=== PATIENT | female | born 1955 | race African-American/Black ===

== ENCOUNTER 2019-01-03 22:41 | Emergency (ER) | payer MEDICAID ==
[~2019-01-03] VITALS: Ht 160 cm; Wt 86.2 kg
[~2019-01-03 22:41] MED LIST: ACET-8386 PO; ALPR1TAB2 PO; AMLO5TAB PO; BENA20TA PO; GABA300C PO; OMEP40EC1 PO; RANI-287 PO; [UNRECOGNIZED DRUG - OTHER] PO
[2019-01-03 23:06] VITALS: BP 100/69
--- NOTE | 2019-01-03 23:09 | NUR ---
PT WHEEL CHAIR ASSISTED TO BED 5 WITH VSS.
--- NOTE | 2019-01-03 23:21 | NUR ---
Dr. Honeycutt evaluating patient at bedside.
[2019-01-03] MEDS ORDERED: oxyCODONE/APAP 5/325 MG 1 TAB TAB PO ONE (23:30)
[2019-01-03] MEDS ORDERED: KETOROLAC 30 MG/ML VIAL IM ONE (23:30)
--- NOTE | 2019-01-03 23:30 | NUR ---
PT BIB SELF FOR L KNEE PAIN X1 DAY. PT REPORTS FALLING WHILE SHE WAS MOPING AND LANDING ON L KNEE. PT REPORTS SHARP THROBBING PAIN AT 10/10 THAT RADIATES DOWN L LEG. VISIBLE SWELLING AND BRUISING ON L KNEE. PEDAL PULSES PRESENT, CAP REFIL <3 SEC, PT DENIES ANY TINGLING OR NUMBNESS. PT HAS LOS OF ROM WITH L KNEE. ER MD TO SEE PT.
--- NOTE | 2019-01-04 | NUR ---
X RAY AT [facility] AT THIS TIME
--- NOTE | 2019-01-04 00:27 | NUR ---
Dr. Honeycutt re-evaluating patient at bedside.
[2019-01-04] MEDS ORDERED: MORPHINE SULFATE 4 MG/ML SYR IM ONE (00:30)
--- NOTE | 2019-01-04 01:39 | NUR ---
BOBBY EMT PUTTING ON KNEE IMOBILIZER AND TEACHING PT HOW TO USE CRUTCHES AT THIS TIME.
[2019-01-04 01:45] VITALS: BP 110/70
--- NOTE | 2019-01-04 01:46 | NUR ---
Patient discharged with v/s stable. Written and verbal after care instructions given and explained. Patient alert, oriented and verbalized understanding of instructions. Ambulatory with steady gait. All questions addressed prior to discharge. ID band removed. Patient advised to follow up with PMD. Rx of IBUPROFEN, PERCOCET given. Patient educated on indication of medication including possible reaction and side effects. Opportunity to ask questions provided and answered.
== END 2019-01-04 01:46 | disposition home or self-care (01) ==
LOC: MED 22:41
DX: M25.562 Pain in left knee (principal); I10 Essential (primary) hypertension; Z79.899 Other long term (current) drug therapy; Z88.1 Allergy status to other antibiotic agents; Z88.2 Allergy status to sulfonamides; W01.0XXA Fall on same level from slipping, tripping and stumbling without subsequent striking against object, initial encounter; Y93.89 Activity, other specified; Y92.89 Other specified places as the place of occurrence of the external cause; Y99.8 Other external cause status
CPT/HCPCS: 73502; 73562; 96372; 99283; J1885; J2270; Q0092

== ENCOUNTER 2019-01-04 22:21 | Emergency (ER) | payer MEDICAID ==
[~2019-01-04] VITALS: Ht 160 cm; Wt 86.2 kg
[2019-01-04 22:24] VITALS: BP 139/78
--- NOTE | 2019-01-04 22:24 | NUR ---
TO LOBBY AWAITING BED, VSS.
--- NOTE | 2019-01-04 23:20 | NUR ---
TO CT VIA WC WITH DIRECTOR OF FLIGHT OPERATIONS
[2019-01-04] MEDS ORDERED: oxyCODONE/APAP 5/325 MG 1 TAB TAB PO ONE (23:45)
--- NOTE | 2019-01-05 00:25 | NUR ---
PT BIB SELF BECAUSE SHE WAS CALLED BY DR OGDEN AT [facility] AND TOLD TO COME BACK IN FOR A CT SCAN. PT REPORTS 10/10 SHARP STABBING PAIN THAT INCREASING WITH MEVEMENT AND WALKING. SWELLING AND BRUISING VISIBLE ON L KNEE. ER MD TO SEE PT.
[2019-01-05 02:11] VITALS: BP 139/78
--- NOTE | 2019-01-05 02:11 | NUR ---
Patient discharged with v/s stable. Written and verbal after care instructions given and explained. Patient verbalized understanding. Ambulatory with WITH CRUTCHES. All questions addressed prior to discharge. Advised to follow up with PMD.
== END 2019-01-05 02:11 | disposition home or self-care (01) ==
LOC: MED 22:21
DX: M25.562 Pain in left knee (principal); I10 Essential (primary) hypertension; Z79.899 Other long term (current) drug therapy; Z88.1 Allergy status to other antibiotic agents; Z88.2 Allergy status to sulfonamides
CPT/HCPCS: 73700; 99284

== ENCOUNTER 2019-04-22 19:10 | Emergency (ER) | payer MEDICAID ==
[~2019-04-22] VITALS: Ht 160 cm; Wt 91.2 kg
[2019-04-22 19:18] VITALS: BP 146/88
--- NOTE | 2019-04-22 19:18 | NUR ---
PT TAKEN TO BED 7.
[2019-04-22] MEDS ORDERED: KETOROLAC 60 MG/2 ML VIAL IM ONE (19:50)
--- NOTE | 2019-04-22 19:51 | NUR ---
EMT PERFORMING EKG AT BEDSIDE.
--- NOTE | 2019-04-22 19:51 | NUR ---
64 YO F BIB SELF PRESENTS WITH ATYPICAL NON-RADIATING 9/10 UPPER CHEST PAIN. PT DESCRIBES IT A TIGHTNESS. PT ALSO C/O SOB AND MOIST, PRODUCTIVE COUGH WITH PHLEGHM SINCE SUNDAY. PT SOUNDS CONGESTED AND REPORTS BEING SICK OFF AND ON FOR PAST SEVERAL WEEKS. DENIES N/V. NO DIAPHORESIS NOTED AT THIS TIME. -- PT APPEARS UNCOMFORTABLE. AWAKE, ALERT, CALM, COOPERATIVE. ANSWERS QUESTIONS APPROPRIATELY. BEHAVIOR APPROPRIATE. -- SKIN PINK, WARM, DRY. BREATHING EVEN, SLIGHTLY LABORED. EXPIRATORY WHEEZING HEARD THROUGHOUT. PMH-- GERD, HTN, ARTHRITIS IN KNEE
--- NOTE | 2019-04-22 19:56 | NUR ---
LAB AT BEDSIDE.
[2019-04-22 20:06] LABS: BASOPHILS # (AUTO) 0.1 K/uL (0.00-0.22); BASOPHILS % (AUTO) 0.8 % (0.0-2.0); EOSINOPHILS # (AUTO) 0.1 K/uL (0-0.4); EOSINOPHILS % (AUTO) 0.9 % (0.0-4.0); HEMATOCRIT 37.4 % (36-48); HEMOGLOBIN 11.7 g/dL (12.0-16.0); LYMPHOCYTES # (AUTO) 2.9 K/uL (2.5-16.5); LYMPHOCYTES % (AUTO) 26.4 % (20.5-51.1); MEAN CORPUSCULAR HEMOGLOBIN 21 pg (27-31); MEAN CORPUSCULAR HGB CONC 31 g/dL (33-37); MEAN CORPUSCULAR VOLUME 65.3 fL (80-94); MONOCYTES # (AUTO) 0.7 K/uL (0.8-1.0); MONOCYTES % (AUTO) 6.8 % (1.7-9.3); NEUTROPHILS # (AUTO) 7.1 K/uL (1.8-7.7); NEUTROPHILS % (AUTO) 65.1 % (42.2-75.2); PLATELET COUNT (AUTO) 276 K/uL (140-450); RED BLOOD CELL COUNT(AUTO) 5.73 MIL/uL (4.20-5.40); RED CELL DISTRIBUTION WIDTH 17.3 % (11.6-13.7); WHITE BLOOD COUNT (AUTO) 10.9 K/uL (4.8-10.8)
[2019-04-22 20:15] LABS: ANION GAP 11.2 (8-16); CARBON DIOXIDE 29.1 mmol/L (21-32); CREATININE 0.8 mg/dL (0.6-1.3); POTASSIUM 3.3 mmol/L (3.5-5.1)
[2019-04-22 20:21] LABS: ALBUMIN 3.7 g/dL (3.4-5.0); TOTAL BILIRUBIN 0.3 mg/dL (0.0-1.0)
[2019-04-22] MEDS ORDERED: predniSONE 20 MG TAB PO ONE (20:50)
[2019-04-22] MEDS ORDERED: ALBUTEROL 0.083% 2.5 MG/3 ML NEBU INH ONE (20:50)
[2019-04-22] MEDS ORDERED: ALBUTEROL SULFATE/IPRATROPIU 3 ML SOL IH ONE (20:50)
--- NOTE | 2019-04-22 21:02 | NUR ---
RT at bedside for breathing treatment.
--- NOTE | 2019-04-22 21:24 | NUR ---
BREATHING TX COMPLETED. PT REPORTS IMPROVED BREATHING.
--- NOTE | 2019-04-22 21:30 | NUR ---
PT TAKEN TO CT VIA RAVTAR.
--- NOTE | 2019-04-22 21:43 | NUR ---
PT RETURNED FROM CT.
--- NOTE | 2019-04-22 23:06 | NUR ---
Patient discharged with v/s stable. Written and verbal after care instructions given and explained. Patient alert, oriented and verbalized understanding of instructions. Ambulatory with steady gait. All questions addressed prior to discharge. ID band removed. Patient advised to follow up with PMD. Rx of Prednisone, Tylenol and Sudafed given. Patient educated on indication of medication including possible reaction and side effects. Opportunity to ask questions provided and answered.
[2019-04-22 23:11] VITALS: BP 154/93
== END 2019-04-22 23:06 | disposition home or self-care (01) ==
LOC: MED 19:10
DX: R07.89 Other chest pain (principal); J06.9 Acute upper respiratory infection, unspecified; I10 Essential (primary) hypertension; F17.200 Nicotine dependence, unspecified, uncomplicated; Z79.899 Other long term (current) drug therapy; Z88.1 Allergy status to other antibiotic agents; Z88.2 Allergy status to sulfonamides
CPT/HCPCS: 36415; 71045; 71275; 80053; 81002; 81025; 84484; 85025; 85379; 93005; 94640; 96372; 99284; J1885; J7512; J7613; J7620; Q0092; Q9967

== ENCOUNTER 2019-09-19 16:41 | Emergency (ER) | payer MEDICAID ==
[~2019-09-19] VITALS: Ht 160 cm; Wt 88.9 kg
[~2019-09-19 16:41] MED LIST changes: -ALPR1TAB2 PO; -OMEP40EC1 PO; +OMEP40EC24 PO; -RANI-287 PO; -[UNRECOGNIZED DRUG - OTHER] PO
[2019-09-19 17:00] VITALS: BP 125/90
--- NOTE | 2019-09-19 17:04 | NUR ---
PT TO ER LOBBY WITH VSS. PT ALERT AND AWAKE
--- NOTE | 2019-09-19 18:50 | NUR ---
Pt placed in chair A.
[2019-09-19] MEDS ORDERED: KETOROLAC 15 MG/ML VIAL IVP ONE (19:30)
--- NOTE | 2019-09-19 19:40 | NUR ---
PT TO RADIOLOGY VIA WHEEL CHAIR
--- NOTE | 2019-09-19 19:57 | NUR ---
LAB AT BEDSIDE
--- NOTE | 2019-09-19 20:00 | NUR ---
64/F C/O BACK PAIN X SUNDAY. PAIN 08/28. DENIES INJURY OR DYSURIA. TAKING NORCO WITH NO RELIEF. ABD SOFT AND NON DISTENDED. ACTIVE BOWEL SOUNDS PRESENT. EVEN UNLABORED BREATHING. NO SIGNS OF DISTRESS. VSS. PT COLD SYMPTOMS X SUNDAY PMH- HTN, ACID REFLEX
--- NOTE | 2019-09-19 20:07 | NUR ---
PT TAKEN TO CT VIA WHEELCHAIR AT THIS TIME
--- NOTE | 2019-09-19 20:07 | NUR ---
PT GOING TO CT
[2019-09-19 20:12] LABS: BASOPHILS # (AUTO) 0.1 K/uL (0.00-0.22); BASOPHILS % (AUTO) 0.8 % (0.0-2.0); EOSINOPHILS # (AUTO) 0.1 K/uL (0-0.4); EOSINOPHILS % (AUTO) 1.2 % (0.0-4.0); HEMATOCRIT 37.5 % (36-48); HEMOGLOBIN 11.6 g/dL (12.0-16.0); LYMPHOCYTES # (AUTO) 3.8 K/uL (2.5-16.5); LYMPHOCYTES % (AUTO) 43.2 % (20.5-51.1); MEAN CORPUSCULAR HEMOGLOBIN 21 pg (27-31); MEAN CORPUSCULAR HGB CONC 31 g/dL (33-37); MEAN CORPUSCULAR VOLUME 65.9 fL (80-94); MONOCYTES # (AUTO) 0.5 K/uL (0.8-1.0); NEUTROPHILS # (AUTO) 4.3 K/uL (1.8-7.7); NEUTROPHILS % (AUTO) 48.8 % (42.2-75.2); PLATELET COUNT (AUTO) 304 K/uL (140-450); RED BLOOD CELL COUNT(AUTO) 5.68 MIL/uL (4.20-5.40); RED CELL DISTRIBUTION WIDTH 17.1 % (11.6-13.7); WHITE BLOOD COUNT (AUTO) 8.8 K/uL (4.8-10.8)
--- NOTE | 2019-09-19 20:21 | NUR ---
pt returned from ct at this time
[2019-09-19 20:53] LABS: ANION GAP 12.3 (8-16); CARBON DIOXIDE 28.3 mmol/L (21-32); POTASSIUM 3.6 mmol/L (3.5-5.1)
[2019-09-19 20:54] LABS: APPEARANCE,URINE CLEAR (CLEAR); BILIRUBIN,URINE NEGATIVE (NEGATIVE); BLOOD, URINE NEGATIVE (NEGATIVE); COLOR,URINE YELLOW (YELLOW); LEUKOCYTE ESTERASE ,URINE NEGATIVE (NEGATIVE); NITRITE, URINE NEGATIVE (NEGATIVE); UGLUCOSE NEGATIVE (NEGATIVE)
[2019-09-19 20:54] LABS: ALBUMIN 3.9 g/dL (3.4-5.0); CREATININE 0.8 mg/dL (0.6-1.3); TOTAL BILIRUBIN 0.2 mg/dL (0.0-1.0)
[2019-09-19] MEDS ORDERED: KETOROLAC 30 MG/ML VIAL IM ONE (22:20)
[2019-09-19 22:37] VITALS: BP 130/88
== END 2019-09-19 22:37 | disposition home or self-care (01) ==
LOC: MED 16:41
DX: M54.9 Dorsalgia, unspecified (principal); R10.9 Unspecified abdominal pain; K21.9 Gastro-esophageal reflux disease without esophagitis; I10 Essential (primary) hypertension; Z79.891 Long term (current) use of opiate analgesic; Z79.899 Other long term (current) drug therapy; Z88.2 Allergy status to sulfonamides; Z88.1 Allergy status to other antibiotic agents
CPT/HCPCS: 36415; 71045; 74176; 80053; 81003; 83690; 85025; 96372; 99284; J1885; Q0092; 96374

== ENCOUNTER 2020-02-02 19:16 | Emergency (ER) | payer MEDICAID ==
[~2020-02-02] VITALS: Ht 160 cm; Wt 86.2 kg
[2020-02-02 19:24] VITALS: BP 126/63
[2020-02-02 20:03] VITALS: BP 126/63
== END 2020-02-02 20:04 | disposition home or self-care (01) ==
LOC: MED 19:16
DX: L02.411 Cutaneous abscess of right axilla (principal); K21.9 Gastro-esophageal reflux disease without esophagitis; I10 Essential (primary) hypertension; Z79.899 Other long term (current) drug therapy; Z88.2 Allergy status to sulfonamides; Z88.1 Allergy status to other antibiotic agents
CPT/HCPCS: 99283

== ENCOUNTER 2020-02-07 13:25 | Emergency (ER) | payer MEDICAID ==
[~2020-02-07] VITALS: Ht 160 cm; Wt 86.2 kg
[2020-02-07 13:31] VITALS: BP 150/91
[2020-02-07] MEDS ORDERED: LIDOCAINE MPF 1% 10 MG/ML VIAL INJ ONE (14:00)
[2020-02-07 14:45] VITALS: BP 150/91
== END 2020-02-07 14:46 | disposition home or self-care (01) ==
LOC: MED 13:25
DX: L02.411 Cutaneous abscess of right axilla (principal); I10 Essential (primary) hypertension; Z88.1 Allergy status to other antibiotic agents; Z88.2 Allergy status to sulfonamides; Z79.899 Other long term (current) drug therapy
CPT/HCPCS: 10060; 99284; J2001

== ENCOUNTER 2020-02-09 16:14 | Emergency (ER) | payer MEDICAID ==
[~2020-02-09] VITALS: Ht 160 cm; Wt 86.2 kg
[2020-02-09 16:19] VITALS: BP 127/71
--- NOTE | 2020-02-09 16:24 | NUR ---
PT AMBULATED TO BED 9, STEADAY GAIT.
--- NOTE | 2020-02-09 16:34 | NUR ---
64 Y/F PRESENTS TO ED FOR WOUND CHECK. PT WAS SEEN IN THE ED ON SUNDAY AND HAD AN I&D TO R UNDERARM. PT HAS COMPLETED ATB, DENIES ANY FEVER, CHILLS OR SIGNS OF INFECTION. PT TAKING MOTRIN AT HOME WITH LITTLE RELIEF. SMALL CLEAN INCISION UNDER R FOREARM. NO EXUDATE NOTED. RR EVEN AND UNLABORED, NO DISTRESS NOTED.
[2020-02-09] MEDS ORDERED: HYDROcodone/APAP 5/325 MG 1 TAB TAB PO ONE ×2 (17:00→17:15)
[2020-02-09] MEDS ORDERED: LIDOCAINE 2% 1000 MG/50 ML VIAL INJ ONE (17:40)
[2020-02-09] MEDS ORDERED: BENZOCAINE 20% 57 GM CAN MC ONE ×2 (17:44→17:50)
--- NOTE | 2020-02-09 17:45 | NUR ---
DR. WOO AT BEDSIDE FOR I&D PROCEDURE.
--- NOTE | 2020-02-09 18:12 | NUR ---
APPIED NONADHERENT DRESSING TO RIGHT AXILLARY
[2020-02-09 18:18] VITALS: BP 120/67
--- NOTE | 2020-02-09 18:18 | NUR ---
Patient discharged with v/s stable. Written and verbal after care instructions given and explained. Patient alert, oriented and verbalized understanding of instructions. Ambulatory with steady gait. All questions addressed prior to discharge. ID band removed. Patient advised to follow up with PMD. Rx of clindamycin & norco given. Patient educated on indication of medication including possible reaction and side effects. Opportunity to ask questions provided and answered.
== END 2020-02-09 18:18 | disposition home or self-care (01) ==
LOC: MED 16:14
DX: L02.411 Cutaneous abscess of right axilla (principal); I10 Essential (primary) hypertension; Z79.899 Other long term (current) drug therapy; Z88.2 Allergy status to sulfonamides; Z88.1 Allergy status to other antibiotic agents
CPT/HCPCS: 10060; 99284; J2001

== ENCOUNTER 2020-02-10 19:01 | Emergency (ER) | payer MEDICAID ==
[~2020-02-10] VITALS: Ht 160 cm; Wt 87.1 kg
[2020-02-10 19:06] VITALS: BP 127/70
[2020-02-10 19:44] VITALS: BP 130/77
== END 2020-02-10 19:44 | disposition home or self-care (01) ==
LOC: MED 19:01
DX: L02.411 Cutaneous abscess of right axilla (principal); F17.210 Nicotine dependence, cigarettes, uncomplicated; I10 Essential (primary) hypertension; Z48.01 Encounter for change or removal of surgical wound dressing; Z88.1 Allergy status to other antibiotic agents; Z88.2 Allergy status to sulfonamides; Z79.899 Other long term (current) drug therapy
CPT/HCPCS: 99283

== ENCOUNTER 2021-12-14 16:36 | Emergency (ER) | payer MEDICARE, MEDICAID ==
[~2021-12-14] VITALS: Ht 160 cm; Wt 95.7 kg
[2021-12-14 17:30] VITALS: BP 158/122
--- NOTE | 2021-12-14 18:24 | NUR ---
phleb at [facility] for pt blood draws at this time
--- NOTE | 2021-12-14 18:34 | NUR ---
pt being assessed in triage at this time by veronica
[2021-12-14 18:35] LABS: BASOPHILS # (AUTO) 0.1 K/uL (0.00-0.22); BASOPHILS % (AUTO) 1.1 % (0.0-2.0); EOSINOPHILS # (AUTO) 0.1 K/uL (0-0.4); EOSINOPHILS % (AUTO) 0.6 % (0.0-4.0); HEMOGLOBIN 12.1 g/dL (12.0-16.0); LYMPHOCYTES # (AUTO) 4.3 K/uL (2.5-16.5); LYMPHOCYTES % (AUTO) 35.5 % (20.5-51.1); MEAN CORPUSCULAR HEMOGLOBIN 21 pg (27-31); MEAN CORPUSCULAR HGB CONC 32 g/dL (33-37); MEAN CORPUSCULAR VOLUME 64.9 fL (80-94); MONOCYTES # (AUTO) 0.8 K/uL (0.8-1.0); MONOCYTES % (AUTO) 6.6 % (1.7-9.3); NEUTROPHILS # (AUTO) 6.9 K/uL (1.8-7.7); NEUTROPHILS % (AUTO) 56.2 % (42.2-75.2); PLATELET COUNT (AUTO) 323 K/uL (140-450); RED BLOOD CELL COUNT(AUTO) 5.86 MIL/uL (4.20-5.40); RED CELL DISTRIBUTION WIDTH 16.8 % (11.6-13.7); WHITE BLOOD COUNT (AUTO) 12.2 K/uL (4.8-10.8)
[2021-12-14 19:03] LABS: ALBUMIN 4.1 g/dL (3.4-5.0); ANION GAP 15.6 (8-16); CARBON DIOXIDE 27.9 mmol/L (21-32); CREATININE 0.9 mg/dL (0.6-1.3); POTASSIUM 3.5 mmol/L (3.5-5.1); TOTAL BILIRUBIN 0.3 mg/dL (0.0-1.0)
[2021-12-14 21:08] LABS: APPEARANCE,URINE CLEAR (CLEAR); BILIRUBIN,URINE NEGATIVE (NEGATIVE); BLOOD, URINE NEGATIVE (NEGATIVE); COLOR,URINE YELLOW (YELLOW); LEUKOCYTE ESTERASE ,URINE NEGATIVE (NEGATIVE); NITRITE, URINE NEGATIVE (NEGATIVE); UGLUCOSE TRACE (NEGATIVE)
--- NOTE | 2021-12-14 21:15 | NUR ---
call for ct
--- NOTE | 2021-12-14 21:52 | NUR ---
patient of1
[2021-12-14] MEDS ORDERED: MORPHINE SULFATE 2 MG/ML SYR IVP ONE (22:15)
[2021-12-14] MEDS ORDERED: ONDANSETRON 4 MG/2 ML VIAL IVP ONE (22:15)
--- NOTE | 2021-12-14 22:29 | NUR ---
called for CT
--- NOTE | 2021-12-14 23:43 | NUR ---
PATIENT TO CT VIA W/C
--- NOTE | 2021-12-15 00:02 | NUR ---
IV removed, catheter intact and site benign. Applied folded 4x4 gauze and tape to stop bleeding.
[2021-12-15] MEDS ORDERED: AMOX-1000 PO (00:31)
[2021-12-15 00:48] VITALS: BP 158/122
--- NOTE | 2021-12-15 00:48 | NUR ---
ermd aware of pt VS
--- NOTE | 2021-12-15 00:48 | NUR ---
Patient discharged with v/s stable. Written and verbal after care instructions given and explained. Patient alert, oriented and verbalized understanding of instructions. Ambulatory with steady gait. All questions addressed prior to discharge. ID band removed. Patient advised to follow up with PMD. Rx of augmentin [id number] given. Patient educated on indication of medication including possible reaction and side effects. Opportunity to ask questions provided and answered.
== END 2021-12-15 00:48 | disposition home or self-care (01) ==
LOC: MED 16:36
DX: K52.9 Noninfective gastroenteritis and colitis, unspecified (principal)
CPT/HCPCS: 36415; 74177; 80053; 81003; 83690; 85025; 96374; 96375; 99285; J2270; J2405; Q9967